=== PATIENT | female | born 1990 | race Caucasian/White ===

== ENCOUNTER 2017-03-05 20:57 | Inpatient (IN) | payer OTHER ==
--- NOTE | ~2017-03-05 | PN ---
Unit #: [id number] #: [id number] Patient: DONYA HOLLINGSWORTH [id number] [facility] [address] [place] [address] [id number] I MR#: [id number] NAME: DONYA HOLLINGSWORTH ROOM: P208 Age: 26 Sex: F Admission Date: 03/05/2017 : 1990 Attending Physician: Ralf Heredia M.D. Admitting Physician: Ralf Heredia M.D. Primary Care Physician: Primary Care Physician Cat ROSE PROGRESS NOTES DATE 03/06/2017 DISCUSSION Donya Hollingsworth is a 26-year-old female seen on 03/06/2017. Patient interviewed, chart reviewed, obtained information from the nursing staff. Patient vital signs 98.5, 87, 21, __/66. Height 5 feet 3 inches. Patient was seclusive, isolative, guarded, flat affect, sad, dysphoric mood. Complete review of systems unremarkable. MENTAL STATUS EXAMINATION General appearance: Patient is dressed in hospital attire. Attention span and concentration poor. Oriented in place and person. Mood and affect sad and dysphoric. Speech monotone. Thought process concrete. Patient denied any thoughts of harming self or others or any psychotic symptoms. Recent and remote memory poor. Insight and judgement poor. DIAGNOSIS Opiate use disorder, severe. Mood disorder NOS. ASSESSMENT AND PLAN Advise to continue with current therapeutic intervention to improve coping skill. Will closely monitor patient new medication at this time. Dictated by... Estiven Fraga/ayde TD: 03/08/2017 07:34 JOB #: [id number] Unit #: [id number] #: [id number] Patient: DONYA HOLLINGSWORTH TSERINGREINA PROGRESS NOTES Page 1 of 1 X Ralf Heredia MD PROGRESS NOTE
--- NOTE | ~2017-03-05 | DS ---
Unit #: [id number] #: [id number] Patient: LADARIUS HAGEN [id number] [facility] [address] [place] [address] [id number] MR#: [id number] NAME: LADARIUS HAGEN ROOM: [facility] Age: 26 Sex: F Admission Date: 03/05/2017 : 1990 Discharge Date: 03/07/2017 Attending Physician: Ralf Heredia M.D. Primary Care Physician: Primary Care Physician No DISCHARGE SUMMARY REASON FOR ADMISSION Detox. DIAGNOSTIC STUDIES LABORATORY RESULTS: Remarkable for a calcium of 8.2. test positive. HOSPITAL COURSE The patient was admitted to inpatient unit on 03/05/2017 and discharged on 03/07/2017 as the patient requested for discharge. The patient is not suicidal or homicidal or any psychotic symptom. The patient is not holdable at this time. The patient was treated with chemical dependency group, expressive therapy, the patient was not given any medication, psychotherapy, structured milieu. Because of , no medication was given. The patient was followed by the medical doctor on the inpatient unit. Subsequently, the patient was discharged at her request with a plan to follow up in outpatient program. DISCHARGE DIAGNOSES Psychiatric: 1. Opioid use disorder, severe, F11.20. 2. Mood disorder, not otherwise specified, F32.9. Secondary diagnosis: Deferred. Medical diagnosis: . Stressors: Psychosocial stressors. DISCHARGE INSTRUCTIONS The patient is to follow up in outpatient clinic as per social service worker. CONDITION ON DISCHARGE The patient was pleasant and cooperative. PROGNOSIS Guarded. DIET AND ACTIVITY As tolerated. Dictated by... Ralf Heredia M.D. Unit #: [id number] #: [id number] Patient: LADARIUS HAGEN SZC/modl TD: 03/07/2017 18:48 JOB #: [id number] DISCHARGE SUMMARY Page 1 of 1 X Ralf Heredia MD X DISCHARGE SUMMARY
--- NOTE | ~2017-03-05 | HP ---
Unit #: [id number] #: [id number] Patient: DONYA HAGEN [id number] [place] [address] [id number] MR#: [id number] NAME: DONYA HAGEN ROOM: P208 Age: 26 Sex: F Admission Date: 03/05/2017 : 1990 Attending Physician: Ralf Heredia M.D. Admitting Physician: Ralf Heredia M.D. Primary Care Physician: Primary Care Physician No HISTORY AND PHYSICAL HISTORY OF PRESENT ILLNESS Donya is a 26 year old admitted to [address] [place] [address] because of her polysubstance abuse which includes IV heroin. PAST MEDICAL HISTORY 1. Long history of poly-illicit substance abuse to include IV heroin. 2. Hepatitis C. 3. Patient reports she is 5 months . PAST SURGICAL HISTORY Nothing reported. ALLERGIES No known drug allergies. SOCIAL HISTORY Smokes 1 pack per day. Denies alcohol. Admits to a long history of illicit substance abuse to include IV heroin and methamphetamine. FAMILY HISTORY Medically noncontributory. REVIEW OF SYSTEMS CONSTITUTIONAL: No fever or chills. HEENT: Denies any sore throat, ear pain or runny nose. CARDIOVASCULAR: Denies chest pain, irregular heart rhythm or palpitations. CHEST: Denies shortness of breath or cough. No hemoptysis. GASTROINTESTINAL: Denies nausea, vomiting, diarrhea or chronic constipation. ENDOCRINE: Denies history of increased thirst or urination. No recent significant weight loss or gain. GENITOURINARY: Denies dysuria, frequency, or hematuria. SKIN: Denies any rashes. HEMATOLOGIC: Denies history of increased bleeding or bruising. MUSCULOSKELETAL: Denies any hot, swollen joints. No generalized muscle pain. NEUROLOGIC: Denies problems with vision or speech. No frequent, severe headaches. No numbness, tingling or weakness in any extremities. Denies loss of bladder or bowel control. CURRENT MEDICATIONS Tylenol p.r.n. Unit #: [id number] #: [id number] Patient: DONYA HAGEN PHYSICAL EXAMINATION GENERAL: Alert, well-nourished, in no apparent distress. VITAL SIGNS: Blood pressure 110/60, heart rate 72, respirations 16, temperature 98.6. WEIGHT: 150. HEIGHT: 5 feet 3 inches. SKIN: Warm and dry without rash or lesion. HEENT: Normocephalic. TMs not viewed. Oral and nasal passages clear. Conjunctivae clear. PERRLA. EOMs intact. NECK: Supple without lymphadenopathy or thyromegaly. HEART: Regular rate and rhythm without murmur. LUNGS: Clear. ABDOMEN: Soft, nontender. : Not done. EXTREMITIES: No evidence of cyanosis, clubbing or edema. Moves all without focal deficit. NEUROLOGICAL: Grossly within normal limits. Cranial Nerves: II: Visual lanier are intact. III, IV AND : Extraocular movements are intact. Pupils are equal, round and reactive to light. V: Facial sensation is grossly normal. VII: Facial movements and expression are normal. VIII: Auditory acuity grossly intact. IX, X: Uvula is midline. Phonation is normal. XI: Patient shrugs shoulders and turns head normally. XII: Tongue protrudes in the midline. Sensory and Motor Function: Sensory and motor sensation is grossly normal. Motor: moves all extremities well. Coordination: Gait is normal. Deep Tendon Reflexes: Intact. DIAGNOSTIC STUDIES LABORATORY DATA: Beta HCG positive, quantitative pending. IMPRESSION Psychiatric admission. RECOMMENDATIONS PSYCHIATRIC: Per psychiatrist. MEDICAL: 1. See no contraindications to participate in facility's activities. 2. Await results of quantitative beta HCG. Patient knows she needs to follow up with OB. MEDICAL PROGNOSIS Good. MEDICAL CONDITION Stable. Dictated by... Candice Leon P.A.-C. for Estiven Isabel/tino TD: 03/06/2017 21:14 JOB #: [id number] Unit #: [id number] #: [id number] Patient: DONYA HAGEN HISTORY AND PHYSICAL Page 1 of 1 X Candice Leon HISTORY AND PHYSICAL
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
[2017-03-06 09:54] LABS: BASOPHIL% 0.1 % (0-2.5); HEMATOCRIT 26.6 % (35.0-45.0); HEMOGLOBIN 9.1 gm/dL (12.0-16.0); LYMPHOCYTE# 1.6 X10e3 (1.0-3.5); LYMPHOCYTE% 39.3 % (17.0-45.0); MEAN CELL VOLUME 78.6 FL (83-96); MEAN CORPUSCULAR HEMOGLOBIN 26.9 PG (28-34); MEAN CORPUSCULAR HGB CONC 34.2 g/dL (30-36); MEAN PLATELET VOLUME 7.8 FL (6.5-11.5); MONOCYTE# 0.5 X10e3 (0-1.0); MONOCYTE% 13.1 % (3.0-12.0); NEUTROPHIL# 1.9 X10e3 (1.5-7.1); NEUTROPHIL% 47.5 % (40-75); PLATELET COUNT 163 X10e3 (140-420); RED BLOOD COUNT 3.38 X10e (3.90-5.30); RED CELL DISTRIBUTION WIDTH 18.9 % (11.0-15.5); WHITE BLOOD COUNT 4.1 X10e3 (4.0-10.5)
[2017-03-06 10:07] LABS: DIFF IND NO
[2017-03-06 10:11] LABS: THYROID STIMULATING HORMONE 0.62 uIU/ml (0.34-5.60)
[2017-03-06 10:17] LABS: FREE THYROXIN (T4) 0.83 ng/dL (0.58-1.64)
[2017-03-06 10:26] LABS: ALBUMIN SERUM 2.6 g/dL (3.5-5.0); BILIRUBIN,TOTAL 0.2 mg/dL (0.2-2.0); CALCIUM SERUM 8.2 mg/dL (8.4-10.2); CREATININE SERUM 0.5 mg/dL (0.6-1.4); GLOM FILT RATE Estimated 131.7 mL/min (>60); POTASSIUM 3.5 mmol/L (3.5-5.1); PROTEIN TOTAL SERUM 5.3 g/dL (6.0-8.3)
[2017-03-06 13:10] LABS: URINE APPEARANCE CLOUDY; URINE BILIRUBIN NEG (NEG); URINE BLOOD NEG (NEG); URINE COLOR YELLOW; URINE GLUCOSE NORM (NORM); URINE KETONE NEG (NEG); URINE LEUKOCYTE ESTERASE NEG (NEG); URINE NITRATE POS (NEG); URINE PROTEIN NEG (NEG); URINE SPECIFIC GRAVITY 1.025 (1.003-1.035); URINE UROBILINOGEN NORM (NORM)
[2017-03-06 13:43] LABS: AMPHETAMINE POS (NEG); BARBITURATES NEG (NEG); BENZODIAZEPINES NEG (NEG); COCAINE NEG (NEG); MARIJUANA NEG (NEG); OPIATES POS (NEG); TRICYCLIC ANTIDEPRESSANTS POS (NEG); U METHADONE NEG (NEG)
== END 2017-03-07 11:44 | disposition home or self-care (01) | DRG 897 ==
LOC: P2S 20:57
PROVIDERS: Psychiatry & Neurology Psychiatry
PROC: HZ2ZZZZ Detoxification Services for Substance Abuse Treatment (ICD-10-PCS; principal; 2017-03-05)
DX: F11.20 Opioid dependence, uncomplicated (principal); F32.9 Major depressive disorder, single episode, unspecified; Z33.1 Pregnant state, incidental; B19.20 Unspecified viral hepatitis C without hepatic coma; F17.210 Nicotine dependence, cigarettes, uncomplicated
CPT/HCPCS: 80053; 80307; 81003; 84439; 84443; 84702; 84703; 85025; 86592